=== PATIENT | female | born 1955 | race Caucasian/White ===

== ENCOUNTER 2018-02-23 15:04 | Outpatient (CLI) | payer BC | END 2018-02-23 15:05 | disposition home or self-care (01) | LOC: BICRAD 15:04 | PROVIDERS: ATTEND Chiropractor | DX: M25.552 Pain in left hip (principal); M25.551 Pain in right hip; M54.5 Low back pain; M51.36 Other intervertebral disc degeneration, lumbar region; M16.7 Other unilateral secondary osteoarthritis of hip; Q74.2 Other congenital malformations of lower limb(s), including pelvic girdle; M16.11 Unilateral primary osteoarthritis, right hip | CPT/HCPCS: 72100 ==